=== PATIENT | female | born 1975 | race Two or more races ===

== ENCOUNTER 2022-10-05 04:30 | Emergency (ER) | payer OTHER ==
[~2022-10-05] VITALS: Ht 162.6 cm; Wt 69.4 kg
[2022-10-05] MEDS ORDERED: CEPHALEXIN500 MG PO ×2 (07:17→07:19)
[2022-10-05] MEDS ORDERED: PYRIDIUM DS200 MG PO ×2 (07:17→07:19)
== END 2022-10-05 07:42 ==
LOC: ER 04:30
DX: R30.0 Dysuria (principal); R31.9 Hematuria, unspecified